=== PATIENT | female | born 1945 | race Hispanic/Latino ===

== ENCOUNTER → 2017-08-23 | Outpatient (CLI) | payer MEDICARE, OTHER ==
--- NOTE | 2017-08-23 16:41 | Diagnostic Imaging Report ---
PROCEDURE:L-SPINE COMPLETE COMPARISON:None. INDICATIONS:ARTHRITIS PAIN FINDINGS: There are 5 lumbar-type vertebral bodies. The vertebral bodies are well-aligned without evidence of spondylolisthesis. There are no acute, displaced fractures, lytic or blastic lesions. Mild degenerative disc changes in the lumbosacral spine, with osteophytosis. Bilateral oblique views show no spondylolysis. Facet hypertrophy. L5-S1. Vertebral body heights are maintained. The sacroiliac joints are unremarkable. Atherosclerotic calcification of the abdominal aorta. Pelvic vascular calcifications. CONCLUSION: 1. Mild degenerative disc changes in the lumbosacral spine. No acute abnormalities. Jean-Paul Quick M.D. Dictated by: Jean-Paul Quick M.D. on 08/23/2017 at 16:41 Electronically approved by: Jean-Paul Quick M.D. on 08/23/2017 at 16:41
== END ==
LOC: RAD 13:09
DX: M54.5 Low back pain (principal)
CPT/HCPCS: 72110